=== PATIENT | female | born 1965 | race Caucasian/White ===

== ENCOUNTER 2016-07-03 10:35 | Day surgery (SDC) | payer MEDICAID ==
[~2016-07-03] VITALS: Ht 152.4 cm; Wt 77.0 kg
[~2016-07-03 10:35] MED LIST: ACID1GRA2 GT; ALBU6.7H INH; AMLO5TAB2 PO; ATEN25TA PO; CYAN100T GT; CYCL-259 PO; FLEXERIL PO; FLUC100T PO; GABA800T2 PO; HYDR-3307 PO; IPRA15SP2 INH; LEVO250T23 PO; LEVO750T26 PO; LEVO750T6 GT; LEVO750T6 PO; LISI-167 PO; LORA0.5T PO; MAGN400T26 GT; METF500T4 PO; METR250T PO; MORP15TA PO; NYST1000 PO; OMEP-110 PO; OXYC5CAP4 PO; PRED10TA PO; PRED20TA PO; SERT50TA PO; SUCR1ORA11 PO; TRAZ100T15 PO
[2016-07-03 11:06] VITALS: BP 109/76
[2016-07-03] MEDS ORDERED: SODIUM CHLORIDE 0.9% 1,000 ML IV SCH (11:06)
[2016-07-03] MEDS ORDERED: SUMA50TA3 PO (11:11)
[2016-07-03] MEDS ORDERED: CEFAZOLIN PMX 1GM/50ML 50 ML IVPB ONE (11:30)
[2016-07-03] MEDS ORDERED: MIDAZOLAM 1 MG/ML, 5ML ONE ×2 (11:49)
[2016-07-03] MEDS ORDERED: FENTANYL PF 100 MCG/2ML ONE (11:49)
[2016-07-03] MEDS ORDERED: NALOXONE 1 MG/ML, 2ML ONE (11:50)
[2016-07-03] MEDS ORDERED: FLUMAZENIL 0.1 MG/1 ML, 5ML ONE (11:50)
[2016-07-03] MEDS ORDERED: LIDOCAINE 2%, 20ML ONE (11:50)
== END 2016-07-03 14:10 | disposition home or self-care (01) ==
LOC: OUT 10:35
PROVIDERS: ATTEND Internal Medicine Hematology & Oncology
DX: Z45.2 Encounter for adjustment and management of vascular access device (principal); C32.1 Malignant neoplasm of supraglottis; E11.9 Type 2 diabetes mellitus without complications; I10 Essential (primary) hypertension; G43.909 Migraine, unspecified, not intractable, without status migrainosus; K21.9 Gastro-esophageal reflux disease without esophagitis; F41.9 Anxiety disorder, unspecified; E28.2 Polycystic ovarian syndrome; J45.909 Unspecified asthma, uncomplicated; J43.9 Emphysema, unspecified; Z99.81 Dependence on supplemental oxygen; Z88.2 Allergy status to sulfonamides; F17.210 Nicotine dependence, cigarettes, uncomplicated; Z88.6 Allergy status to analgesic agent; Z88.9 Allergy status to unspecified drugs, medicaments and biological substances; Z72.89 Other problems related to lifestyle
CPT/HCPCS: 36590; 77001; 99156; 99157; J0690; J2250; J3010; J3490; J7030; J2310

== ENCOUNTER → 2016-09-14 | Outpatient (CLI) | payer MEDICAID ==
[~2016-09-14] MED LIST changes: +SUMA50TA3 PO
== END | disposition home or self-care (01) ==
LOC: ROC 13:31
PROVIDERS: ATTEND Radiology Radiation Oncology
DX: C32.1 Malignant neoplasm of supraglottis (principal)
CPT/HCPCS: 99213; G0463

== ENCOUNTER → 2016-10-02 | Outpatient (CLI) | payer MEDICAID | END | disposition home or self-care (01) | LOC: ROC 12:50 | PROVIDERS: ATTEND Radiology Radiation Oncology | DX: C32.1 Malignant neoplasm of supraglottis (principal) | CPT/HCPCS: 99213; G0463 ==

== ENCOUNTER → 2017-03-17 | Outpatient (CLI) | payer MEDICAID ==
[~2017-03-17] MED LIST changes: -ACID1GRA2 GT; +ACID1GRA3 GT; +OXYC5CAP2 PO; -OXYC5CAP4 PO
== END ==
LOC: ROC 11:24
PROVIDERS: ATTEND Radiology Radiation Oncology
DX: C32.9 Malignant neoplasm of larynx, unspecified (principal); Z92.3 Personal history of irradiation; Z92.21 Personal history of antineoplastic chemotherapy
CPT/HCPCS: 99213; G0463

== ENCOUNTER → 2017-04-05 | Outpatient (CLI) | payer MEDICAID | END | disposition home or self-care (01) | LOC: RAD 10:41 | PROVIDERS: ATTEND Radiology Radiation Oncology | DX: C32.1 Malignant neoplasm of supraglottis (principal); R13.10 Dysphagia, unspecified | CPT/HCPCS: 74230 ==

== ENCOUNTER 2017-06-09 14:20 | Inpatient (IN) | payer MEDICAID ==
[~2017-06-09] VITALS: Ht 152.4 cm; Wt 75.6 kg
[2017-06-09 15:03] LABS: MEAN CORPUSCULAR HEMOGLOBIN 30.9 pg (27.0-34.8); MEAN CORPUSCULAR HGB CONC 33.9 g/dL (32.4-35.8); MEAN CORPUSCULAR VOLUME 91.1 fL (80-100); MEAN PLATELET VOLUME 7.2 fL (7.4-10.4); PLATELET COUNT 317 x10^3/uL (130-400); RED BLOOD COUNT 4.96 x10^6/uL (3.82-5.3); RED CELL DISTRIBUTION WIDTH 14.7 % (9.6-15.2)
[2017-06-09 15:13] LABS: ALANINE AMINOTRANSFERASE 24 U/L (12-78); ALBUMIN 3.8 g/dL (3.4-5.0); ANION GAP 7 mmol/L (5-15); CALCIUM 9.6 mg/dL (8.5-10.1); CHLORIDE 99 mmol/L (98-107); CREATININE 0.73 mg/dL (0.55-1.02)
[2017-06-09 15:16] LABS: ALKALINE PHOSPHATASE 100 U/L (45-117); BILIRUBIN,TOTAL 0.4 mg/dL (0.2-1.0); TOTAL PROTEIN 7.3 g/dL (6.4-8.2)
[2017-06-09 15:26] LABS: BASOPHILS # (AUTO) 0.04 x10^3/uL (0-0.1); BASOPHILS % (AUTO) 0 % (0-1); EOSINOPHILS % (AUTO) 0 % (1-7); LYMPHOCYTES # (AUTO) 1.42 x10^3/uL (1-3.4); LYMPHOCYTES % (AUTO) 7 % (22-44); MD SCAN; MONOCYTES # (AUTO) 0.51 x10^3/uL (0.2-0.8); MONOCYTES % (AUTO) 3 % (2-9); NEUTROPHILS # (AUTO) 17.81 x10^3/uL (1.8-6.8); NEUTROPHILS % (AUTO) 90 % (42-75)
[2017-06-09] MEDS ORDERED: METO-282 PO (16:07)
[2017-06-09] MEDS ORDERED: MORPHINE SULFATE 4 MG/ML, 1ML ONE (16:29)
[2017-06-09] MEDS ORDERED: DEXAMETHASONE 4 MG/ML, 1ML ONE (16:29)
[2017-06-09] MEDS ORDERED: DEXAMETHASONE 4 MG/ML, 1ML IVPush ONE (16:30)
[2017-06-09] MEDS ORDERED: morphine SULFATE 10 MG/ML, 1ML IVPush ONE (16:30)
[2017-06-09] MEDS ORDERED: ONDANSETRON ODT 4 MG PO PRN (17:00)
[2017-06-09] MEDS ORDERED: LABETALOL 5MG/ML, 20ML IVPush PRN (17:00)
[2017-06-09] MEDS ORDERED: POLYETHYLENE GLYCOL 17 GM PACKET PO PRN (17:00)
[2017-06-09] MEDS ORDERED: DEXAMETHASONE 4 MG/ML, 1ML IVPush SCH (18:30)
[2017-06-09] MEDS: AMPICILLIN/SULBACTAM 3 GM in SODIUM CHLORIDE 0.9% 100 ML IV SCH (18:34)
[2017-06-09] MEDS: SODIUM CHLORIDE 0.9% 1,000 ML IV SCH (18:34)
[2017-06-09] MEDS: OXYcodone IR 5MG TABLET PO PRN (19:39)
[2017-06-09] MEDS ORDERED: ENOXAPARIN 40 MG/0.4 ML SQ SCH (20:00)
[2017-06-09] MEDS ORDERED: FAMOTIDINE 20 MG TABLET PO SCH (21:00)
[2017-06-09] MEDS ORDERED: FAMOTIDINE 20 MG/2 ML IVPush SCH (22:06)
[2017-06-09] MEDS: DEXAMETHASONE 4 MG/ML, 1ML IVPush SCH (22:13)
[2017-06-09] MEDS: morphine SULFATE 10 MG/ML, 1ML IVPush PRN (22:14)
[2017-06-09 22:50] VITALS: BP 118/76
[2017-06-10] MEDS: AMPICILLIN/SULBACTAM 3 GM in SODIUM CHLORIDE 0.9% 100 ML IV SCH ×3 (01:10→11:48)
[2017-06-10] MEDS: morphine SULFATE 10 MG/ML, 1ML IVPush PRN ×2 (01:10→04:48)
[2017-06-10 04:00] VITALS: BP 114/58
[2017-06-10 04:25] LABS: BASOPHILS % (AUTO) 0 % (0-1); EOSINOPHILS # (AUTO) 0.01 x10^3/uL (0-0.4); EOSINOPHILS % (AUTO) 0 % (1-7); LYMPHOCYTES # (AUTO) 0.92 x10^3/uL (1-3.4); LYMPHOCYTES % (AUTO) 8 % (22-44); MD NO; MEAN CORPUSCULAR HEMOGLOBIN 31.4 pg (27.0-34.8); MEAN CORPUSCULAR HGB CONC 33.9 g/dL (32.4-35.8); MEAN CORPUSCULAR VOLUME 92.8 fL (80-100); MEAN PLATELET VOLUME 7.2 fL (7.4-10.4); MONOCYTES # (AUTO) 0.13 x10^3/uL (0.2-0.8); MONOCYTES % (AUTO) 1 % (2-9); NEUTROPHILS % (AUTO) 91 % (42-75); PLATELET COUNT 291 x10^3/uL (130-400); RED CELL DISTRIBUTION WIDTH 14.8 % (9.6-15.2)
[2017-06-10 04:36] LABS: CHLORIDE 103 mmol/L (98-107)
[2017-06-10 04:43] LABS: ALANINE AMINOTRANSFERASE 19 U/L (12-78); ALBUMIN 3.6 g/dL (3.4-5.0); ALKALINE PHOSPHATASE 95 U/L (45-117); ANION GAP 10 mmol/L (5-15); BILIRUBIN,TOTAL 0.3 mg/dL (0.2-1.0); CALCIUM 9.3 mg/dL (8.5-10.1); CREATININE 0.73 mg/dL (0.55-1.02); TOTAL PROTEIN 6.6 g/dL (6.4-8.2)
[2017-06-10] MEDS: SODIUM CHLORIDE 0.9% 1,000 ML IV SCH (04:49)
[2017-06-10] MEDS: DEXAMETHASONE 4 MG/ML, 1ML IVPush SCH ×2 (04:49→11:09)
[2017-06-10] MEDS ORDERED: LORazepam INTENSOL 2 MG/ML PO PRN (07:30)
[2017-06-10] MEDS ORDERED: GABAPENTIN 400 MG CAPSULE PO SCH (09:00)
[2017-06-10] MEDS ORDERED: SENNA/DOCUSATE TABLET PO SCH (09:00)
[2017-06-10] MEDS ORDERED: CYCLOBENZAPRINE 10 MG TABLET PO SCH (09:00)
[2017-06-10] MEDS ORDERED: SUMATRIPTAN 50 MG TABLET PO SCH ×2 (09:00)
[2017-06-10] MEDS: OXYcodone IR 5MG TABLET PO PRN (09:08)
[2017-06-10] MEDS ORDERED: DEXA10VI7 PEG (10:10)
[2017-06-10] MEDS ORDERED: AZIT200S PO (10:10)
== END 2017-06-10 13:30 | disposition home or self-care (01) | DRG 153 ==
LOC: ED 16:13 → EDIP 16:14 → ED 17:04 → CCU 18:14
PROVIDERS: ADMIT Internal Medicine; ATTEND Internal Medicine
DX: J05.10 Acute epiglottitis without obstruction (principal); J38.4 Edema of larynx; Z99.81 Dependence on supplemental oxygen; Q61.2 Polycystic kidney, adult type; E11.9 Type 2 diabetes mellitus without complications; E28.2 Polycystic ovarian syndrome; F17.200 Nicotine dependence, unspecified, uncomplicated; F41.1 Generalized anxiety disorder; G43.909 Migraine, unspecified, not intractable, without status migrainosus; I10 Essential (primary) hypertension; G89.29 Other chronic pain; J44.9 Chronic obstructive pulmonary disease, unspecified; K21.9 Gastro-esophageal reflux disease without esophagitis; R09.02 Hypoxemia; Z82.49 Family history of ischemic heart disease and other diseases of the circulatory system; Z85.038 Personal history of other malignant neoplasm of large intestine; Z85.21 Personal history of malignant neoplasm of larynx; Z85.819 Personal history of malignant neoplasm of unspecified site of lip, oral cavity, and pharynx; Z92.3 Personal history of irradiation; Z92.21 Personal history of antineoplastic chemotherapy; Z93.1 Gastrostomy status
CPT/HCPCS: 36415; 71045; 80053; 82962; 85025; 87081; 93005; 96374; 96375; J0295; J1100; J1650; J2270; J7030; S0028

== ENCOUNTER → 2017-10-04 | Outpatient (CLI) | payer MEDICAID ==
[~2017-10-04] MED LIST changes: +AZIT200S PO; +DEXA10VI7 PEG; -METF500T4 PO; +METF500T5 PO; +METO-282 PO; +TRAZ-137 PO; -TRAZ100T15 PO
== END | disposition home or self-care (01) ==
LOC: ROC 11:38
PROVIDERS: ATTEND Radiology Radiation Oncology
DX: C32.9 Malignant neoplasm of larynx, unspecified (principal); J44.9 Chronic obstructive pulmonary disease, unspecified; F17.200 Nicotine dependence, unspecified, uncomplicated
CPT/HCPCS: 99212; G0463

== ENCOUNTER 2018-03-01 05:52 | Day surgery (SDC) | payer MEDICAID ==
[~2018-03-01] VITALS: Ht 162.6 cm; Wt 74.4 kg
[~2018-03-01 05:52] MED LIST changes: +AMLO-150 PO; -AMLO5TAB2 PO; +METF500T17 PO; -METF500T5 PO
[2018-03-01 06:50] VITALS: BP 117/79
[2018-03-01] MEDS ORDERED: LACTATED RINGERS 1,000 ML IV SCH (06:57)
[2018-03-01] MEDS ORDERED: SERT50TA PO (06:57)
[2018-03-01] MEDS ORDERED: ALBU6.7H IH (06:57)
[2018-03-01] MEDS ORDERED: ZOLP10TA PO (06:57)
[2018-03-01] MEDS ORDERED: LIDOCAINE-MPF 1%, 2ML INFIL ONE (07:00)
[2018-03-01] MEDS ORDERED: EPINEPHRINE TOPICAL SOLN 1 MG/ML, 30ML ONE (07:09)
[2018-03-01] MEDS ORDERED: FLUORESCEIN SODIUM 500 MG/5 ML ONE (07:09)
[2018-03-01] MEDS ORDERED: OXYMETAZOLINE NASAL SPRAY 0.05%, 15ML ONE (07:09)
[2018-03-01] MEDS ORDERED: MIDAZOLAM 1 MG/ML, 2ML ONE (07:11)
[2018-03-01] MEDS ORDERED: FENTANYL PF 250 MCG/5ML ONE (07:11)
[2018-03-01] MEDS ORDERED: PROPOFOL 10 MG/ML, 20ML ONE ×2 (07:12→07:42)
[2018-03-01] MEDS ORDERED: DEXAMETHASONE 4 MG/ML, 1ML ONE (07:42)
[2018-03-01] MEDS ORDERED: ROCURONIUM 10MG/ML,5ML ONE (07:42)
[2018-03-01] MEDS ORDERED: SUCCINYLCHOLINE 20 MG/ML, 10ML ONE (07:42)
[2018-03-01] MEDS ORDERED: CEFAZOLIN 1,000 MG ONE (07:42)
[2018-03-01] MEDS ORDERED: GLYCOPYRROLATE 0.2MG/1ML, 5ML ONE (07:42)
[2018-03-01] MEDS ORDERED: NEOSTIGMINE 1 MG/ML, 10ML ONE (07:42)
[2018-03-01] MEDS ORDERED: LIDOCAINE-MPF 2% ,5ML ONE (07:48)
[2018-03-01] MEDS ORDERED: OXYcodone 5 MG/5 ML ORAL.SOL UDC PO PRN (08:30)
[2018-03-01] MEDS ORDERED: MIDAZOLAM 1 MG/ML, 2ML IV PRN (08:30)
[2018-03-01] MEDS ORDERED: SCOPOLAMINE PATCH, 1.5MG PATCH.TD72 TD PRN (08:30)
[2018-03-01] MEDS ORDERED: ALBUTEROL/IPRATROPIUM 2.5MG/0.5MG, 3 ML NPPB PRN (08:30)
[2018-03-01] MEDS ORDERED: hydrALAzine 20 MG/ML, 1ML IV PRN (08:30)
[2018-03-01] MEDS ORDERED: ACETAMINOPHEN 325 MG TABLET PO PRN (08:30)
[2018-03-01] MEDS ORDERED: ONDANSETRON 2MG/ML, 2ML IV PRN (08:30)
[2018-03-01] MEDS ORDERED: PROMETHAZINE 25 MG/ML, 1ML IV PRN (08:30)
[2018-03-01] MEDS ORDERED: MORPHINE SULFATE 4 MG/ML, 1ML IVPush PRN (08:30)
[2018-03-01] MEDS ORDERED: DIAZEPAM 5 MG/ML, 2ML IVPush PRN (08:30)
[2018-03-01] MEDS ORDERED: MEPERIDINE/PF 25MG/0.5ML IVPush PRN (08:30)
[2018-03-01] MEDS ORDERED: FENTANYL PF 100 MCG/2ML ONE (08:32)
[2018-03-01] MEDS ORDERED: OXYcodone 5 MG/5 ML ORAL.SOL UDC ONE (08:32)
[2018-03-01] MEDS ORDERED: MORPHINE SULFATE 4 MG/ML, 1ML ONE (08:32)
[2018-03-01] MEDS: FENTANYL PF 100 MCG/2ML IV PRN ×2 (08:34→08:43)
== END 2018-03-01 10:10 | disposition home or self-care (01) ==
LOC: OUT 05:52
PROVIDERS: ATTEND Otolaryngology
DX: J05.10 Acute epiglottitis without obstruction (principal); J38.7 Other diseases of larynx; F17.210 Nicotine dependence, cigarettes, uncomplicated; J44.9 Chronic obstructive pulmonary disease, unspecified; K31.9 Disease of stomach and duodenum, unspecified; Z85.21 Personal history of malignant neoplasm of larynx; Z88.1 Allergy status to other antibiotic agents; Z88.8 Allergy status to other drugs, medicaments and biological substances; Z79.82 Long term (current) use of aspirin; Z72.89 Other problems related to lifestyle; Z99.81 Dependence on supplemental oxygen
CPT/HCPCS: 31536; 87070; 87077; 87102; 87106; 87205; 88305; 88312; J0330; J0690; J1100; J2250; J2704; J2710; J3010; J3490; J7120; 87186

== ENCOUNTER → 2018-07-28 | Outpatient (CLI) | payer MEDICAID ==
[~2018-07-28] MED LIST changes: +ALBU6.7H IH; -CYAN100T GT; +CYAN100T2 GT; -GABA800T2 PO; +GABA800T5 PO; +ZOLP10TA PO
== END | disposition home or self-care (01) ==
LOC: RAD 08:31
PROVIDERS: ATTEND Family Medicine
DX: M75.82 Other shoulder lesions, left shoulder (principal); M25.812 Other specified joint disorders, left shoulder; M79.89 Other specified soft tissue disorders

== ENCOUNTER → 2019-01-18 | Outpatient (CLI) | payer MEDICAID ==
[~2019-01-18] MED LIST changes: -ALBU6.7H IH; -ALBU6.7H INH; +ALBU6.7H8 IH; +ALBU6.7H8 INH; -HYDR-3307 PO; +HYDR-36 PO; +IRON GT; +OXYC10TA6 PO; +folic acid GT; +vitamin B GT
== END | disposition home or self-care (01) ==
LOC: STAR 09:00
PROVIDERS: ATTEND Otolaryngology
DX: Z01.818 Encounter for other preprocedural examination (principal); C32.9 Malignant neoplasm of larynx, unspecified; Z87.891 Personal history of nicotine dependence; L90.5 Scar conditions and fibrosis of skin; Z88.6 Allergy status to analgesic agent; Z88.2 Allergy status to sulfonamides
CPT/HCPCS: 71046; 93005

== ENCOUNTER 2019-01-24 08:04 | Day surgery (SDC) | payer MEDICAID ==
[~2019-01-24] VITALS: Ht 152.4 cm; Wt 67.7 kg
[2019-01-24] MEDS ORDERED: LACTATED RINGERS 1,000 ML IV SCH (08:27)
[2019-01-24] MEDS: LIDOCAINE-MPF 1%, 2ML INFIL ONE ×2 (08:30→08:58)
[2019-01-24 08:38] VITALS: BP 111/73
[2019-01-24] MEDS ORDERED: LIDOCAINE-MPF 1%, 2ML ONE (08:44)
[2019-01-24] MEDS ORDERED: EPINEPHRINE 1 MG/ML, 1ML ONE (09:46)
[2019-01-24] MEDS ORDERED: EPINEPHRINE TOPICAL SOLN 1 MG/ML, 30ML ONE (09:46)
[2019-01-24] MEDS ORDERED: MIDAZOLAM 1 MG/ML, 2ML ONE ×2 (09:56→11:11)
[2019-01-24] MEDS ORDERED: GLYCOPYRROLATE 0.2MG/1ML, 5ML ONE (09:56)
[2019-01-24] MEDS ORDERED: FENTANYL PF 250 MCG/5ML ONE (09:56)
[2019-01-24] MEDS ORDERED: PROPOFOL 10 MG/ML, 20ML ONE (09:59)
[2019-01-24] MEDS ORDERED: DEXAMETHASONE 4 MG/ML, 1ML ONE (09:59)
[2019-01-24] MEDS ORDERED: SUCCINYLCHOLINE 20 MG/ML, 10ML ONE (10:00)
[2019-01-24] MEDS ORDERED: ROCURONIUM 10MG/ML,5ML ONE (10:00)
[2019-01-24] MEDS ORDERED: ONDANSETRON 2MG/ML, 2ML ONE (10:03)
[2019-01-24] MEDS ORDERED: SUGAMMADEX 200 MG/2 ML IVPush ONE (10:03)
[2019-01-24] MEDS ORDERED: OXYMETAZOLINE NASAL SPRAY 0.05%,30ML NAS ONE (10:24)
[2019-01-24] MEDS ORDERED: LIDOCAINE 4%, 4 ML SYR/CANN TP ONE (10:28)
[2019-01-24] MEDS ORDERED: PROMETHAZINE 12.5 MG SUPP PR PRN (10:30)
[2019-01-24] MEDS ORDERED: EPHEDRINE 50 MG/ML, 1ML IVPush PRN (10:30)
[2019-01-24] MEDS ORDERED: DIAZEPAM 5 MG/ML, 2ML IVPush PRN (10:30)
[2019-01-24] MEDS ORDERED: hydrALAzine 20 MG/ML, 1ML IV PRN (10:30)
[2019-01-24] MEDS ORDERED: LABETALOL 5MG/ML, 20ML IV PRN (10:30)
[2019-01-24] MEDS ORDERED: PROMETHAZINE 25 MG/ML, 1ML IV PRN (10:30)
[2019-01-24] MEDS ORDERED: ONDANSETRON 2MG/ML, 2ML IV PRN (10:30)
[2019-01-24] MEDS ORDERED: MEPERIDINE/PF 25MG/ML,1ML IVPush PRN (10:30)
[2019-01-24] MEDS ORDERED: ALBUTEROL SULFATE 2.5 MG/3 ML NPPB PRN (10:30)
[2019-01-24] MEDS ORDERED: ALBUTEROL SULFATE 2.5 MG/3 ML ONE (10:43)
[2019-01-24] MEDS ORDERED: RACEPINEPHRINE INH 2.25%, 0.5ML ONE ×2 (10:47→11:11)
[2019-01-24] MEDS ORDERED: OXYMETAZOLINE NASAL SPRAY 0.05%, 15ML ONE (10:51)
[2019-01-24] MEDS: RACEPINEPHRINE INH 2.25%, 0.5ML NPPB PRN ×2 (10:58→11:20)
[2019-01-24] MEDS ORDERED: FENTANYL PF 100 MCG/2ML ONE (11:11)
[2019-01-24] MEDS: FENTANYL PF 100 MCG/2ML IV PRN ×5 (11:17→11:58)
[2019-01-24] MEDS: MIDAZOLAM 1 MG/ML, 2ML IV PRN ×3 (11:24→12:52)
[2019-01-24] MEDS ORDERED: OXYcodone 5 MG/5 ML ORAL.SOL UDC ONE (11:48)
[2019-01-24] MEDS ORDERED: OXYcodone 5 MG/5 ML ORAL.SOL UDC PO PRN ×2 (12:00→12:30)
[2019-01-24] MEDS ORDERED: HYDROmorphone 1 MG/ML, 1ML INJ ONE (12:16)
[2019-01-24] MEDS: HYDROmorphone 2 MG/ML, 1ML IVPush PRN ×2 (12:20→12:52)
== END 2019-01-24 14:40 | disposition home or self-care (01) ==
LOC: OUT 08:04
PROVIDERS: ATTEND Otolaryngology
DX: J38.7 Other diseases of larynx (principal); J05.10 Acute epiglottitis without obstruction; J45.909 Unspecified asthma, uncomplicated; G43.909 Migraine, unspecified, not intractable, without status migrainosus; K21.9 Gastro-esophageal reflux disease without esophagitis; Z79.891 Long term (current) use of opiate analgesic; Z79.899 Other long term (current) drug therapy; Z85.21 Personal history of malignant neoplasm of larynx; Z88.2 Allergy status to sulfonamides; Z88.5 Allergy status to narcotic agent; Z88.6 Allergy status to analgesic agent; Z88.8 Allergy status to other drugs, medicaments and biological substances; Z92.21 Personal history of antineoplastic chemotherapy; Z93.1 Gastrostomy status; Z99.81 Dependence on supplemental oxygen; Z82.49 Family history of ischemic heart disease and other diseases of the circulatory system; Z82.3 Family history of stroke
CPT/HCPCS: 31535; 88305; 88312; 94640; J0330; J1100; J1170; J2250; J2405; J2704; J3010; J7120; J7613; J0171

== ENCOUNTER 2019-12-24 19:46 | Inpatient (IN) | payer MEDICAID ==
[~2019-12-24] VITALS: Ht 152.4 cm; Wt 70.3 kg
[~2019-12-24 19:46] MED LIST changes: -CYAN100T2 GT; +CYAN100T22 GT; +HYDR-3246 PO; -HYDR-36 PO; -SUCR1ORA11 PO; +SUCR1ORA14 PO; -TRAZ-137 PO; +TRAZ-175 PO
[2019-12-24] MEDS ORDERED: ONDANSETRON 2MG/ML, 2ML IVPush ONE (20:00)
[2019-12-24] MEDS ORDERED: SODIUM CHLORIDE FLUSH 10ML SYR IVF ONE (20:00)
--- NOTE | 2019-12-24 20:01 | NUR ---
Patient evaluated by this RN and [facility] [place]. Code neuro initiated.
--- NOTE | 2019-12-24 20:06 | NUR ---
Patient BIB ambulance c/o acute onset right side tingling and right side head "hotness" x2 hrs. Patient states she "got up to go potty but couldn't do it" due to weakness which is not normal for her. Patient's face is asymmetrical. Patient denies hx of stroke or TIA. Patient is slow to respond. Respirations even and unlabored.
--- NOTE | 2019-12-24 20:14 | NUR ---
Patient to CT with LAUREN Alvarez.
--- NOTE | 2019-12-24 20:25 | NUR ---
Patient returned from CT.
--- NOTE | 2019-12-24 20:29 | NUR ---
bassam rn: back from ct, dr aguirre on tele robot. applied all monitors
--- NOTE | 2019-12-24 20:53 | NUR ---
Lab in room. Patient attempting to use bedpan.
[2019-12-24] MEDS ORDERED: CLOPIDOGREL 75 MG TABLET PO ONE (21:00)
[2019-12-24 21:08] LABS: BASOPHILS % (AUTO) 1 % (0-1); EOSINOPHILS % (AUTO) 2 % (1-7); LYMPHOCYTES % (AUTO) 20 % (22-44); MEAN CORPUSCULAR HEMOGLOBIN 29.9 pg (27.0-34.8); MEAN CORPUSCULAR HGB CONC 33.9 g/dL (32.4-35.8); MEAN PLATELET VOLUME 7.2 fL (7.4-10.4); MONOCYTES % (AUTO) 9 % (2-9); NEUTROPHILS % (AUTO) 69 % (42-75); PLATELET COUNT 321 x10^3/uL (130-400); RED BLOOD COUNT 5.21 x10^6/uL (3.82-5.3); RED CELL DISTRIBUTION WIDTH 16.2 % (9.6-15.2)
[2019-12-24 21:10] LABS: MD NO
[2019-12-24 21:18] LABS: ALANINE AMINOTRANSFERASE 11 U/L (12-78); ALBUMIN 2.8 g/dL (3.4-5.0); ANION GAP 5 mmol/L (5-15); CALCIUM 9.1 mg/dL (8.5-10.1); CHLORIDE 91 mmol/L (98-107); CREATININE 0.56 mg/dL (0.55-1.02)
[2019-12-24 21:22] LABS: ALKALINE PHOSPHATASE 129 U/L (45-117); BILIRUBIN,TOTAL 0.4 mg/dL (0.2-1.0); TOTAL PROTEIN 7.3 g/dL (6.4-8.2); TROPONIN I < 0.015 ng/mL (0.000-0.045)
[2019-12-24 21:23] LABS: INTERNATIONAL NORMALIZED RATIO 0.99 (0.93-1.1); PROTHROMBIN TIME 10.5 Seconds (9.6-11.5)
[2019-12-24] MEDS ORDERED: LABETALOL 5MG/ML, 20ML IVPush PRN (22:00)
[2019-12-24] MEDS ORDERED: ONDANSETRON ODT 4 MG PO PRN (22:00)
[2019-12-24] MEDS ORDERED: DOCUSATE 100 MG CAPSULE PO PRN (22:00)
[2019-12-24] MEDS ORDERED: OXYcodone IR 5MG TABLET PO PRN (22:00)
[2019-12-24] MEDS ORDERED: morphine SULFATE 10 MG/ML, 1ML IVPush PRN (22:00)
[2019-12-24] MEDS ORDERED: BISACODYL 10 MG SUPP PR PRN (22:00)
[2019-12-24] MEDS ORDERED: POLYETHYLENE GLYCOL 17 GM PACKET PO PRN (22:00)
[2019-12-24] MEDS ORDERED: PROMETHAZINE 25 MG/ML, 1ML IM PRN (22:00)
[2019-12-24] MEDS ORDERED: ACETAMINOPHEN 325 MG TABLET PO PRN (22:00)
[2019-12-24 22:11] LABS: FREE T4 (FREE THYROXINE) 1.17 ng/dL (0.76-1.46)
[2019-12-24 22:15] LABS: MICROSCOPIC NOT IND
[2019-12-24] MEDS ORDERED: CLOPIDOGREL 75 MG TABLET ONE (22:19)
[2019-12-24] MEDS ORDERED: ONDANSETRON 2MG/ML, 2ML ONE (22:19)
--- NOTE | 2019-12-24 22:23 | NUR ---
Report given to LAUREN Jade. Patient to be transferred to room 407.
--- NOTE | 2019-12-24 22:29 | NUR ---
Bed cline provided.
[2019-12-24 22:45] VITALS: BP 129/86
[2019-12-24] MEDS ORDERED: OMNIPAQUE 350 MG/ML, 100ML BOTTLE ONE (23:07)
[2019-12-24] MEDS ORDERED: GABAPENTIN 400 MG CAPSULE PO PRN (23:30)
[2019-12-25] MEDS: ENOXAPARIN 40 MG/0.4 ML SQ SCH (00:15)
[2019-12-25] MEDS: D5%-0.45% NACL 1,000 ML IV SCH ×2 (00:16→12:45)
[2019-12-25] MEDS: CYCLOBENZAPRINE 10 MG TABLET PO PRN ×2 (00:50→20:35)
[2019-12-25] MEDS: GABAPENTIN 250 MG/5 ML ORAL SOL PO PRN ×3 (00:51→20:32)
[2019-12-25] MEDS: ONDANSETRON 2MG/ML, 2ML IVPush PRN ×2 (01:20→20:52)
[2019-12-25 01:45] VITALS: BP 146/99
[2019-12-25] MEDS ORDERED: MORP-30 PO (05:01)
[2019-12-25] MEDS ORDERED: METO25TA4 PO (05:01)
[2019-12-25] MEDS ORDERED: OXYC20TA2 PO (05:01)
[2019-12-25] MEDS ORDERED: ONDA4TAB13 PO (05:01)
[2019-12-25 06:09] LABS: BASOPHILS % (AUTO) 1 % (0-1); EOSINOPHILS % (AUTO) 2 % (1-7); LYMPHOCYTES % (AUTO) 27 % (22-44); MEAN CORPUSCULAR HEMOGLOBIN 29.4 pg (27.0-34.8); MEAN CORPUSCULAR HGB CONC 33.4 g/dL (32.4-35.8); MEAN PLATELET VOLUME 7.2 fL (7.4-10.4); MONOCYTES % (AUTO) 9 % (2-9); NEUTROPHILS % (AUTO) 62 % (42-75); PLATELET COUNT 310 x10^3/uL (130-400); RED BLOOD COUNT 4.94 x10^6/uL (3.82-5.3); RED CELL DISTRIBUTION WIDTH 16.5 % (9.6-15.2)
[2019-12-25 06:16] LABS: MD NO
[2019-12-25 06:25] LABS: CHLORIDE 99 mmol/L (98-107)
[2019-12-25 06:33] LABS: ALANINE AMINOTRANSFERASE 9 U/L (12-78); ALBUMIN 2.2 g/dL (3.4-5.0); ALKALINE PHOSPHATASE 106 U/L (45-117); ANION GAP 4 mmol/L (5-15); BILIRUBIN,TOTAL 0.3 mg/dL (0.2-1.0); CALCIUM 8.7 mg/dL (8.5-10.1); CHOL/HDL RATIO 4.6; CHOLESTEROL, TOTAL 152 mg/dL (140-239); CREATININE 0.42 mg/dL (0.55-1.02); HDL CHOL % 22 % (28-40); HDL CHOLESTEROL (DIRECT) 33 mg/dL (40-60); LDL CHOLESTEROL,CALCULATED 97 mg/dL (54-169); LDL/HDL RATIO 2.9 (0.5-3.0); TOTAL PROTEIN 5.9 g/dL (6.4-8.2); TRIGLYCERIDES 111 mg/dL (50-200); VLDL CHOLESTEROL 22 mg/dL (0-25)
[2019-12-25 07:58] VITALS: BP 111/75
[2019-12-25] MEDS ORDERED: POTASSIUM CHLORIDE 20 MEQ TAB.ER.PRT PO ONE (08:00)
[2019-12-25] MEDS ORDERED: ACETAMINOPHEN 325 MG TABLET PO PRN (08:00)
[2019-12-25] MEDS ORDERED: POTASSIUM CHLORIDE 20 MEQ TAB.ER.PRT ONE (08:20)
[2019-12-25] MEDS: CLOPIDOGREL 75 MG TABLET PO SCH (08:28)
[2019-12-25] MEDS: METOPROLOL TARTRATE 25 MG TAB PO SCH (08:28)
[2019-12-25] MEDS: INSULIN LISPRO 100 UNITS/ML, PEN SQ-INSULIN SCH ×3 (10:55→20:33)
[2019-12-25 12:11] VITALS: BP 117/82
[2019-12-25] MEDS: OXYcodone IR 5MG TABLET PO PRN ×2 (12:44→20:34)
[2019-12-25] MEDS: ALBUTEROL HFA 90 MCG/SPRAY INH SCH ×2 (14:09→20:33)
[2019-12-25] MEDS ORDERED: MIDAZOLAM 1 MG/ML, 5ML ONE (15:45)
[2019-12-25] MEDS ORDERED: NALOXONE 1 MG/ML, 2ML ONE (15:45)
[2019-12-25] MEDS ORDERED: FLUMAZENIL 0.1 MG/1 ML, 5ML ONE (15:45)
[2019-12-25] MEDS ORDERED: FENTANYL PF 100 MCG/2ML ONE (15:45)
[2019-12-25 18:50] VITALS: BP 143/85
[2019-12-25] MEDS ORDERED: ATORVASTATIN 40 MG TABLET PO SCH (21:00)
[2019-12-26 01:00] VITALS: BP 113/77
[2019-12-26] MEDS: CYCLOBENZAPRINE 10 MG TABLET PO PRN (01:03)
[2019-12-26] MEDS: ENOXAPARIN 40 MG/0.4 ML SQ SCH (01:04)
[2019-12-26] MEDS: OXYcodone IR 5MG TABLET PO PRN ×3 (01:04→14:34)
[2019-12-26] MEDS: GABAPENTIN 250 MG/5 ML ORAL SOL PO PRN (01:04)
[2019-12-26 06:45] VITALS: BP 124/81
[2019-12-26] MEDS: INSULIN LISPRO 100 UNITS/ML, PEN SQ-INSULIN SCH ×3 (07:55→17:00)
[2019-12-26] MEDS ORDERED: SODIUM CHLORIDE 0.9% 1,000 ML IV SCH (08:00)
[2019-12-26] MEDS ORDERED: NALOXONE 1 MG/ML, 2ML ONE (08:51)
[2019-12-26] MEDS ORDERED: MIDAZOLAM 1 MG/ML, 5ML ONE (08:51)
[2019-12-26] MEDS ORDERED: FENTANYL PF 100 MCG/2ML ONE (08:51)
[2019-12-26] MEDS ORDERED: FLUMAZENIL 0.1 MG/1 ML, 5ML ONE (08:51)
[2019-12-26] MEDS: ALBUTEROL HFA 90 MCG/SPRAY INH SCH (09:00)
[2019-12-26 10:57] LABS: ANION GAP 3 mmol/L (5-15); CALCIUM 8.9 mg/dL (8.5-10.1); CHLORIDE 102 mmol/L (98-107)
[2019-12-26 10:58] LABS: CREATININE 0.53 mg/dL (0.55-1.02)
[2019-12-26] MEDS: CLOPIDOGREL 75 MG TABLET PO SCH (11:29)
[2019-12-26] MEDS: METOPROLOL TARTRATE 25 MG TAB PO SCH (11:29)
[2019-12-26 12:04] VITALS: BP 129/81
[2019-12-26] MEDS ORDERED: SUMATRIPTAN 25 MG TABLET PEG PRN (12:30)
[2019-12-26] MEDS ORDERED: CYCL-259 PO (13:37)
[2019-12-26] MEDS ORDERED: CLOP75TA PO (13:37)
[2019-12-26] MEDS ORDERED: ATOR40TA78 PO (13:37)
[2019-12-26] MEDS ORDERED: INSU100I11 SQ-INSULIN (13:37)
[2019-12-26] MEDS ORDERED: POLY17PO5 PO (13:37)
== END 2019-12-26 20:06 | disposition home health service (06) | DRG 45 ==
LOC: ED 20:56 → EDIP 21:27 → 4WST 22:40
PROVIDERS: ADMIT Internal Medicine; ATTEND Internal Medicine
DX: I63.9 Cerebral infarction, unspecified (principal); E11.65 Type 2 diabetes mellitus with hyperglycemia; E87.6 Hypokalemia; E87.1 Hypo-osmolality and hyponatremia; F17.210 Nicotine dependence, cigarettes, uncomplicated; F41.1 Generalized anxiety disorder; G43.909 Migraine, unspecified, not intractable, without status migrainosus; G47.00 Insomnia, unspecified; G89.4 Chronic pain syndrome; I10 Essential (primary) hypertension; I65.01 Occlusion and stenosis of right vertebral artery; I65.23 Occlusion and stenosis of bilateral carotid arteries; J44.9 Chronic obstructive pulmonary disease, unspecified; K21.9 Gastro-esophageal reflux disease without esophagitis; R13.10 Dysphagia, unspecified; Z82.49 Family history of ischemic heart disease and other diseases of the circulatory system; Z85.21 Personal history of malignant neoplasm of larynx; Z92.21 Personal history of antineoplastic chemotherapy; Z92.3 Personal history of irradiation; Z93.1 Gastrostomy status; Z90.89 Acquired absence of other organs; Z88.5 Allergy status to narcotic agent; Z88.6 Allergy status to analgesic agent; Z88.2 Allergy status to sulfonamides; Z88.8 Allergy status to other drugs, medicaments and biological substances; Z79.84 Long term (current) use of oral hypoglycemic drugs
CPT/HCPCS: 36415; 70450; 70496; 70498; 70551; 74230; 80048; 80053; 80061; 80307; 81003; 82962; 83036; 83735; 84439; 84443; 84484; 85025; 85610; 85730; 93005; 93306; 99156; 99157; G0378; J1650; J2250; J2405; J2550; J3010; Q9967; J1815; J2270; J2310; J7030